=== PATIENT | male | born 1960 | race Caucasian/White ===

== ENCOUNTER 2020-09-03 13:03 | Emergency (ER) | payer OTHER ==
[2020-09-03] MEDS ORDERED: TETANUS/DIPHTHERIA/PERTUSSIS 0.5 ML SYRINGE IM ONE (14:10)
--- NOTE | 2020-09-03 14:13 | ED Physician Documentation ---
History of Present Illness - Stated complaint Stated Complaint: GLF - Chief complaint Chief Complaint: Trauma Hd/Nk - Additonal information Additional information: 60-year-old male presents the emergency department for evaluation of posterior scalp laceration sustained at work when he tripped on a car lift falling backwards striking his head on the metal beam. He has a scalp defect that has been difficult to control the bleeding with pressure. He denies that he lost consciousness. He endorses a mild headache and some left-sided neck pain. No anticoagulation. Denies any previous history of head trauma or spine injury. No paresthesias arm weakness. Review of Systems Constitutional: reports: Reviewed and negative Eyes: denies: Loss of vision, Decreased vision, Photophobia, Discharge Ears: denies: Loss of hearing, Ear pain, Drainage/discharge Nose: reports: Reviewed and negative Throat: reports: Reviewed and negative Cardiac: reports: Reviewed and negative Respiratory: reports: Reviewed and negative GI: denies: Abdominal Swelling : reports: Reviewed and negative Skin: reports: Laceration (s) (Posterior scalp/occiput.) Musculoskeletal: reports: Neck pain. denies: Back pain, Extremity pain Neurologic: reports: Headache, Head injury. denies: Generalized weakness, Focal weakness, Numbness, Difficulty speaking, Near syncope, Syncope, Seizure, Confused, Unresponsive, LOC Psychiatric: reports: Reviewed and negative Endocrine: reports: Reviewed and negative PD PAST MEDICAL HISTORY - Present Medications Home Medications: Ambulatory Orders Medication Instructions Recorded Confirmed Lisinopril [Prinivil] 1 tab PO DAILY 09/03/20 09/03/20 - Allergies Allergies/Adverse Reactions: Allergies Allergy/AdvReac Type Severity Reaction Status Date / Time No Known Drug Allergies Allergy Verified 09/03/20 13:21 PD ED PE EXPANDED - General General: Alert, No acute distress, Well developed/nourished - HEENT HEENT: Head injury, PERRL, EOMI, Ears normal. No: Atraumatic (posteriro scalp laceraton), Rhinorrhea, Right nares epsitaxis, Left nares epistaxis - Eyes Eyes: Visual acuity - see nn, PERRL - Neck Neck: Supple w/out meningeal sx, Soft tissue TTP (left paraspinous ttp; mildl midline tenderness without step off or crepitus. Pt placed in C-collar), Bony TTP. No: Adenopathy - Cardiac Cardiac: Regular Rate, Regular Rhythm, Radial strong equal, Pedal strong equal, Cap refill < 2 sec. No: Regularly irregular - Respiratory Respiratory: Clear to ausultation dalia. No: Distress, Labored - Abdomen Abdomen: Normal Bowel sounds. No: Tender to palpation - Derm Derm: Laceration(s) (posterior scalp 4 cm. Pressure dressign placed secondary to bleeding) - Extremities Extremities: Normal (motor strength 5/5 X4). No: Deformity, Tenderness - Neuro Neuro: Alert and Oriented X 3, CNII-XII intact, Cerebellar nl, Normal gait, Normal finger nose, Normal speech - GCS Eye Opening: Spontaneous Motor: Obeys Commands Verbal: Oriented Total: 15 - Psych Psych: Depressed Results - Vitals Vitals: Vital Signs - 24 hr 09/03/20 09/03/20 13:19 13:51 Temperature 36.9 C Heart Rate 74 77 Respiratory 16 16 Rate Blood Pressure 137/86 H 111/80 O2 Saturation 99 99 Oxygen O2 Source Room air - Rads (name of study) CT head Radiology: Final report received (No acute intracranial process. Prominent posterior left parietal/occipital scalp hematoma.) CT neck Radiology: Final report received (Asymmetric hypertrophy of the left C2 wound: Vertebral joint with appearance of lateral bulge and fracture. While this could be chronic related to degenerative change/old trauma given history of recent trauma appearance is suggestive of acute fracture.) PD MEDICAL DECISION MAKING - ED course Complexity details: reviewed results, re-evaluated patient, considered differential, d/w patient ED course: 6-year-old male presents the emergency department for evaluation of a left parietal/occipital typical scalp hematoma after he fell at work today striking his head on a car lift. He did not have loss of consciousness but did report some mild left-sided neck pain. CT of the head does not show any acute intracerebral injuries however the CT of his neck if so just give of a possible C2 fracture. 1530: This gentleman was placed in a rigid cervical collar at 1530. I have asked radiology to push our imaging to [facility] and will request consultation with spinal/neurosurgery there. 1630: I have spoken with ED physician Dr. Delarosa at [facility]. This patient will be transferred directly to the emergency department for evaluation likely acute C2 fracture. This gentleman's posterior scalp laceration was not closed here in the emergency department as it would have required manipulation of the neck in order to do so. This patient will be sent via ALS given cervical spine precautions. Appropriate COBRA work completed adn the initial L&I paperwork initiated. I spoek with the patient's and notified that [facility] Departure - Departure Disposition: 02 Transfer Acute Care Hosp Clinical Impression: Occipital scalp laceration Qualifiers: Encounter type: initial encounter Qualified Code(s): S01.01XA - Laceration without foreign body of scalp, initial encounter Cervical spine fracture Qualifiers: Encounter type: initial encounter Cervical vertebra fracture level: C2 Fracture type: closed Fracture morphology: unspecified fracture morphology Fracture alignment: nondisplaced Qualified Code(s): S12.101A - Unspecified nondisplaced fracture of second cervical vertebra, initial encounter for closed fracture
[2020-09-03] MEDS ORDERED: BUFFERED LIDOCAINE 10 ML SYRINGE SUBQ STA (14:14)
--- NOTE | 2020-09-03 14:37 | CT Report ---
PROCEDURE: HEAD WO INDICATIONS: fall; r/o TBI TECHNIQUE: Noncontrast 4.5 mm thick angled axial sections acquired from the foramen magnum to the vertex. For r adiation dose reduction, the following was used: automated exposure control, adjustment of mA and/or kV according to patient size. COMPARISON: CT cervical spine 09/03/2020 FINDINGS: Image quality: Excellent. CSF spaces: Basal cisterns are patent. No extra-axial fluid collections. Ventricles are normal in size and shape. Brain: No midline shift. No intracranial masses or hemorrhage. Nobles-white matter interface is norm al. Skull and face: Calvarium and visualized facial bones are intact, without suspicious lesions. Promin ent posterior left parietal occipital scalp hematoma. Sinuses: Visualized sinuses and mastoids are clear. IMPRESSION: 1. No acute intracranial process. 2. Prominent posterior left parietal occipital scalp hematoma. Reviewed by: Isi Sawyer MD on 09/03/2020 2:36 PM PST Approved by: Isi Sawyer MD on 09/03/2020 2:36 PM PST Station ID: [id number]
--- NOTE | 2020-09-03 14:44 | CT Report ---
PROCEDURE: CERVICAL SPINE WO INDICATIONS: r/o fx TECHNIQUE: Noncontrast 3 mm thick sections acquired from the skull base to the T4 level. Sagittal and coronal r eformats were then constructed. For radiation dose reduction, the following was used: automated exp osure control, adjustment of mA and/or kV according to patient size. COMPARISON: CT brain 09/03/2020 FINDINGS: Image quality: Excellent. Bones: There is normal motion type fracture appearance at the lateral left uncovertebral joint seen o n series 4 image 21. It is noted hypertrophy of the left uncovertebral joint is markedly asymmetrical ly more prominent when compared to the right. Visualized superior ribs are intact. Multilevel degener ative changes are present including mild reversal of normal cervical curvature. There is trace turner listhesis of C2 on C3, trace retrolisthesis of C3 on C4, C4 on C5. Multilevel moderate to severe disc space narrowing is present. Multilevel moderate bridging osteophytes are present from C4 through T1. Soft tissues: Prevertebral soft tissues are normal in thickness. No paravertebral hematomas. No ap ical pneumothoraces. IMPRESSION: 1. Asymmetric hypertrophy of the left C2 uncovertebral joint with appearance of lateral bulge and fra cture. While this could be chronic related to degenerative change/old trauma, given history of recent trauma, appearance is suggestive of acute fracture. Reviewed by: Isi Sawyer MD on 09/03/2020 2:42 PM PST Approved by: Isi Sawyer MD on 09/03/2020 2:42 PM PST Station ID: [id number]
[2020-09-03 17:30] LABS: C. PNEUMONIAE- RESP PCR PANEL NOT DETECTED
[2020-09-03 18:12] VITALS: BP 129/76
== END 2020-09-03 18:12 | disposition short-term general hospital (02) ==
LOC: ED 13:03
DX: S12.101A Unspecified nondisplaced fracture of second cervical vertebra, initial encounter for closed fracture (principal); S01.01XA Laceration without foreign body of scalp, initial encounter; W01.198A Fall on same level from slipping, tripping and stumbling with subsequent striking against other object, initial encounter; Y99.0 Civilian activity done for income or pay; Z20.822 Contact with and (suspected) exposure to COVID-19; Z23 Encounter for immunization
CPT/HCPCS: 0202U; 1040M; 70450; 72125; 90471; 90715; 99284; 99285

== ENCOUNTER 2020-09-07 11:45 | Emergency (ER) | payer OTHER ==
--- NOTE | 2020-09-07 12:05 | ED Physician Documentation ---
PD HPI WOUND RECHECK - Stated complaint Stated Complaint: WORK RELEASE NOTE - Chief complaint Chief Complaint: General - Histroy obtained from History obtained from: Patient - History of Present Illness Location: Scalp, Other (he had scalp lac that has bradley. He says his neck is not hurting now, only sore for couple days. He was told no fracture per [facility] [place] Timing - onset: How many days ago (3) Associated symptoms: No: Redness, Swelling Recently seen: Emergency Dept (he was seen 09/05 after injury to head/neck. CT showing possible C@ fracture, and he was transferred to [facility] for eval. Pt states he was seen there with bradley of scalp lac, and seen by forest fire prevention specialist, who examined pt and CT images and felt it was some degenerative changes on CT, not Fx.) Review of Systems Skin: reports: Laceration (s) (occipital scalp) Neurologic: denies: Focal weakness, Numbness, Difficulty speaking, Confused, Altered mental status, Headache PD PAST MEDICAL HISTORY - Past Medical History Past Medical History: No - Present Medications Home Medications: Ambulatory Orders Medication Instructions Recorded Confirmed Lisinopril [Prinivil] 10 tab PO DAILY 09/03/20 09/07/20 Ibuprofen [Motrin] 400 mg PO PRN PRN 09/07/20 09/07/20 - Allergies Allergies/Adverse Reactions: Allergies Allergy/AdvReac Type Severity Reaction Status Date / Time No Known Drug Allergies Allergy Verified 09/07/20 11:59 PD ED PE NORMAL - Vitals Vital signs reviewed: Yes - General General: Alert and oriented X 3, No acute distress, Well developed/nourished - HEENT HEENT: Other (closed lac with bradley in place, no signs of infection, on occiput. ) - Neck Neck: Supple, no meningeal sign, No bony TTP, No adenopathy - Derm Derm: Normal color, Warm and dry - Neuro Neuro: Alert and oriented X 3, No motor deficit, No sensory deficit, Normal speech Results - Vitals Vitals: Vital Signs - 24 hr 09/07/20 09/07/20 11:45 12:37 Temperature 36.4 C L Heart Rate 73 71 Respiratory 18 16 Rate Blood Pressure 153/83 H 113/78 O2 Saturation 99 97 Oxygen O2 Source Room air PD MEDICAL DECISION MAKING - ED course Complexity details: reviewed old records (Pt with discharge papers from [facility] showing Dx of neck degenerative changes, scalp laceration. ), considered differential (Pt states he was sent to [facility] for concern of neck fracture but the Spine surgeon reviewed the images and felt it was osteoa rthritis and not fractured. Pt denies getting MRI nor other imaging there. He did have scalp lac stapled. 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 ), d/w patient Departure - Departure Disposition: 01 Home, Self Care Clinical Impression: Scalp laceration Qualifiers: Encounter type: initial encounter Qualified Code(s): S01.01XA - Laceration without foreign body of scalp, initial encounter Condition: Stable Record reviewed to determine appropriate education?: Yes Follow-Up: Avtar Collins MD [Primary Care Provider] - Comments: . Continue the current wound care instructions previously given to you. Forms: Activity restrictions Discharge Date/Time: 09/07/20 12:44
[2020-09-07 12:40] VITALS: BP 113/78
== END 2020-09-07 12:44 | disposition home or self-care (01) ==
LOC: ED 11:45
DX: S01.01XA Laceration without foreign body of scalp, initial encounter (principal); X58.XXXA Exposure to other specified factors, initial encounter
CPT/HCPCS: 99281

== ENCOUNTER 2022-11-30 14:52 | Outpatient (CLI) | payer OTHER ==
[2022-11-30 15:47] VITALS: BP 120/78
--- NOTE | 2022-11-30 15:47 | SLEEP CARE CONSULTATION ---
Information from patient questionnaire entered by Gris Horton. I have reviewed and concur with the information entered by Gris Horton. This document represents the service I personally performed and the decisions made by me, Janny Martins ARNP. History of Present Illness Service Date and Time: 11/30/2022 1452 Reason for Visit: New patient, Previously diagnosed sleep apnea, sleep apnea on CPAP therapy Chief Complaint: reports: Other (LONG TIME CPAP USER EQUIP LESS EFFECTIVE NOW) Date of Onset: 1-2YRS Usual bedtime: 2129 Time it takes to fall asleep: 15-20MIN Snores at night: Yes Observed to quit breathing while asleep: No Sleeps alone due to snoring: No Reasons for waking at night: reports: Bathroom, Other (UNKNOWN) Toss, Turn, or Twitch while sleeping: No Recalls having dreams: No Usually gets out of bed at: 0430 Feels refreshed in the morning: No Morning headache: No Sleepy or fatigued during the day: No Ever fallen asleep while driving: No Takes day naps: No Dreams during day naps: No Year and Where: 2010 [facility] Additional HPI information: CHRISTINA NUNEZ was previously diagnosed to have unknown, AHI unknown, sleep apnea- hypopnea syndrome in 2010 done through [facility] in [place] and comes in today to establish care for CPAP therapy. - Parasomnia Symptoms Ever been unable to move upon waking from sleep: No Walks in sleep: No Talks in sleep: No Ever acted out dreams in sleep: No Ever felt weak in the knees when startled or emotional: No Bothered by creepy, crawly, restless sensations in legs: No Problems with memory or concentration: Yes CPAP Compliance Data - Data Reviewed with Patient Average duration of nightly device use: 6.2 hours used Compliance rate %: 82 (153/180 days used) Current pressure setting (cmH2O): 8-12 (avg 10.5) Average residual AHI: 0.6 Central apnea: 0.3 Compliance data discussion: Patient has a Resmed Airsense 10 that he has had since 2018. He is getting his supplies by going online. He is using a nasal pillows mask, P10. Subjective Missed days of use due to: reports: family emergency, travel, other (falling asleep without mask on; power outages; out of supplies for 2 weeks) Patient concerns: denies: aerophagia, mask discomfort, air blowing in eyes, mask leak noise, condensation in mask/hose, nasal congestion, dry mouth, nose, throat, epistaxis Observed to snore while using device: No Current pressure setting perceived as: comfortable On therapy, patient: reports: sleeping better, awakening more refreshed, being more awake and alert during the day, more rested overall. denies: drowsiness while driving Initial [place] Sleepiness Scale score: 9 (11/30/22) Past Medical History Past Medical History: reports: Hypertension, Arthritis Social History The patient's occupation is a [employer]. Patient is and lives in [place]. Have you smoked in the past 12 months: No Alcohol use: Yes Alcohol amount and frequency: OCCASIONALLY Caffeine use: Yes Caffeine amount and frequency: 2-3CUPS DAILY Family History Family history of sleep disordered breathing: No Allergies and Home Medications Known drug allergies: No Drug allergies reviewed: Yes Home medication list reviewed: Yes Allergy and home medication list: Allergies No Known Drug Allergies Allergy (Verified 11/29/22 13:44) Medications: Lisinopril Ibuprofen Review of Systems Weight gain over past 5 years: 10 Cardiovascular: reports: high blood pressure Gastrointestinal: denies: heartburn Urinary: reports: urgency Neurological: denies: headaches Psychiatric: denies: anxiety, depression Ear/Nose/Throat: reports: injury to nose, wisdom teeth removed Musculoskeletal: reports: joint pain, back pain, mobility problems Physical Exam Vital signs obtained and entered by: GRIS Hidalgo MA Blood Pressure: 120/78 (LEFT ARM) Cuff size: regular Heart Rate: 73 O2 Saturation: 98 Height: 5 ft 6 in Weight: 192 lb 12.8 oz Body Mass Index: 31.1 BMI Classification: Obese Neck circumference: 15.25 Heart: regular rate and rhythm Lungs: clear bilaterally Impression and Plan 1. Obstructive Sleep Apnea-Hypopnea Syndrome, unknown, with good treatment c ompliance and good apnea control. On CPAP therapy, the patient has better sleep quality and is more rested overall. Patient needs a [employer] to get supplies and would like to see if he can update his current CPAP. We need a copy of his last sleep study before I can get supplies ordered and see if he can get a new device. He voiced understanding. He would also like to have information on the new Inspire implant he has heard about. I gave him a brief overview and will talk to him about his after we have more information about his PEDRO. He would also like to get a travel CPAP machine. I can write a prescription for this and he knows that he will have to pay out of pocket for the travel device. If we are unable to get a copy of his sleep study then I will have him complete a new sleep study. Patient's apnea severity and rationale for treatment to reduce apnea, improve sleep quality and reduce cardiovascular and cerebrovascular events was reviewed. I also reviewed the benefit of consistent device use of CPAP for hypertension. 2. Obesity, unspecified. Currently patients BMI is 31.1. Obesity increases the risk of apnea, CPAP pressure requirements and overall health risks especially c ardiovascular and diabetes. Thus patient is advised to lose weight. * Continue auto CPAP pressure at 8-12 cmH2O * Prescription for travel CPAP * Update supplies and possibly machine once we have a copy of his last sleep study * Notify me if snoring with mask or feeling that the pressure is too much or too little * Attempt to lose weight * Call this office if any problems using CPAP * Return for follow up in 1-2 months, or sooner if concerns arise Counseling Topics: Weight loss health impact Visit Type: In Office Time Spent with Patient (minutes): 36 Provider Statement: I spent 100% of the Face to Face Visit with the patient with greater than 50% spent counseling the patient and coordination of care.
== END 2022-11-30 14:53 | disposition home or self-care (01) ==
LOC: SC 14:52
PROVIDERS: ATTEND Nurse Practitioner Family
DX: G47.33 Obstructive sleep apnea (adult) (pediatric) (principal); E66.9 Obesity, unspecified; Z68.31 Body mass index [BMI] 31.0-31.9, adult
CPT/HCPCS: 99203; 99212